=== PATIENT | female | born 1985 | race Caucasian/White ===

== ENCOUNTER → 2018-03-01 14:16 | Outpatient (CLI) | payer OTHER, SELFPAY ==
[2018-03-01 17:23] LABS: Chlamydia Trachomatis by PCR Negative (Negative); Neisserai gonorrhoeae by PCR Negative (Negative); Probe Check PASS; Sample Adequacy Control PASS; Specimen Processing Control PASS
== END ==
PROVIDERS: Visit Provider Obstetrics & Gynecology
DX: Z34.81 Encounter for supervision of other normal pregnancy, first trimester (principal)
CPT/HCPCS: 87086; 87088; 87491; 87591

== ENCOUNTER → 2018-04-01 11:46 | Outpatient (CLI) | payer OTHER, SELFPAY ==
[2018-04-01 12:54] LABS: Absolute Lymphocyte Count 2.01 X10^3/ul (0.83-4.51); Absolute Neutrophil Count 5.3 X10^3/uL (2.0-7.7); Basophil# 0.02 X10^3/uL; Basophil% 0.3 % (0-1); Eosinophil# 0.09 X10^3/uL; Eosinophils% 1.1 % (0-5); Hematocrit 37.1 % (37-47); Hemoglobin 13.2 g/dl (12.0-15.0); Lymphocyte # 2.01 X10^3/ul (4.0); Lymphocyte % 25.7 % (19-41); Mean Corp Hgb Conc 35.6 g/gl (32-36); Mean Corpuscular Hgb 29.3 pg (27.0-32.0); Mean Corpuscular Volume 82.4 fL (81-99); Monocyte# 0.44 X10^3/uL; Monocyte% 5.6 % (0-10); Neutrophil # 5.25 X10^3/uL (2.7-7.7); Platelet Count 240 K/mm3 (150-450); RBC Distribution Width CV 13.3 % (11.6-14.6); RBC Distribution Width SD 39.7 fl (35.1-43.9); White Blood Count 7.8 K/mm3 (4.4-11.0)
[2018-04-01 12:57] LABS: POSITIVE COUNT NO; POSITIVE DIFFERENTIAL NO; POSITIVE MORPHOLOGY NO
[2018-04-01 14:06] LABS: HIV - WCH Non-Reactive (Nonreactive); Rubella IgG 45.9 IU/mL
[2018-04-02 09:23] LABS: HEPATITIS B SURFACE AG Negative (Negative)
[2018-04-05 03:11] LABS: Rapid Plasmin Reagin (RPR) NONREACTIVE (NONREACTIVE)
== END ==
PROVIDERS: Obstetrics & Gynecology; Visit Provider Obstetrics & Gynecology Maternal & Fetal Medicine
DX: O09.521 Supervision of elderly multigravida, first trimester (principal)
CPT/HCPCS: 36415; 85025; 86592; 86703; 86762; 86850; 86900; 87340

== ENCOUNTER → 2018-05-16 12:07 | Outpatient (CLI) | payer OTHER, SELFPAY ==
--- NOTE | 2018-05-16 12:11 | US_ITS ---
STUDY: SECOND AND THIRD TRIMESTER OBSTETRICAL ULTRASOUND REASON FOR EXAM: Female, 32 years old. Evaluation of anatomy. LMP: 01/13/2018 TECHNIQUE: Transabdominal real time examined with grayscale image documentation. PRIOR ULTRASOUND: None. FINDINGS: There is a single intrauterine fetus. The fetus is in a cephalic presentation. There is demonstrated cardiac activity with a heart rate of 153 bpm. There is a normal amniotic fluid volume. The largest amniotic fluid pocket measures 6.6 x 4.9 cm. The placenta is anterior and low lying. The distal edge of the placenta is 2.1 cm from the cervical os. There are Grade 0 placental changes. The cervix measures 3.8 cm in length. The adnexal regions are not visualized. BIOMETRY: BPD: 4.3 cm: 19 weeks, 1 days HC: 16.5 cm: 19 weeks, 2 days AC: 13.4 cm: 19 weeks, 0 days FL: 2.6 cm: 18 weeks, 0 days CI: 73 FL/AC: 20 HC/AC: 1.23 age by current US: 18 weeks, 6 days. JUNIOR by current US: 10/11/2018. Estimated weight: 245 grams, +/- 36 grams, 21 %. Age by LMP: 19 weeks, 0 days. JUNIOR by LMP: 10/10/2018. ANATOMY: Gender: Male Cranium: Normal lateral ventricles. Normal choroid plexus. Normal cerebellum. Normal cisterna magna. Normal face, nose and lips. Chest: Normal 4-chamber heart. Abdomen/Pelvis: Normal diaphragm. Normal stomach. Normal abdominal wall. Normal cord insertion. Normal 3 vessel cord. Normal kidneys. Normal bladder. Spine: Limited spine imaging secondary to position. Grossly normal. Extremities: Normal bilateral upper extremities. Normal bilateral lower extremities. US/OB Anatomy Scan IMPRESSION: Single living intrauterine fetus of 18 weeks and 6 days with an JUNIOR of 10/11/2018. Grade 0, anterior and low lying placenta. The lowest edge of the placenta is 2.1 cm from the cervical os. Cervical length 3.8 cm. Normal quantity of amniotic fluid. Estimated weight 245 g +/- 26 g, 21 percentile. Male infant with normal anatomy; however, there was limited imaging of the spine secondary to position. Electronically Signed: Kayla Dang MD at 19:55 EDT , Service support ,
== END ==
PROVIDERS: Visit Provider Obstetrics & Gynecology
DX: O09.90 Supervision of high risk pregnancy, unspecified, unspecified trimester (principal); Z3A.00 Weeks of gestation of pregnancy not specified
CPT/HCPCS: 76805

== ENCOUNTER → 2018-07-15 16:56 | Outpatient (CLI) | payer OTHER, SELFPAY ==
[2018-07-15 17:47] LABS: Absolute Lymphocyte Count 1.91 X10^3/ul (0.83-4.51); Basophil# 0.02 X10^3/uL; Basophil% 0.2 % (0-1); Eosinophil# 0.15 X10^3/uL; Eosinophils% 1.4 % (0-5); Hematocrit 34.8 % (37-47); Hemoglobin 12.1 g/dl (12.0-15.0); Lymphocyte # 1.91 X10^3/ul (4.0); Lymphocyte % 17.9 % (19-41); Mean Corp Hgb Conc 34.8 g/gl (32-36); Mean Corpuscular Volume 86.1 fL (81-99); Mean Platelet Vol. 9.7 fl (6.2-12.0); Monocyte# 0.58 X10^3/uL; Monocyte% 5.4 % (0-10); Neutrophil # 7.97 X10^3/uL (2.7-7.7); Neutrophil % 74.9 % (47-70); Platelet Count 173 K/mm3 (150-450); RBC Distribution Width CV 13.8 % (11.6-14.6); RBC Distribution Width SD 43.4 fl (35.1-43.9); Red Blood Count 4.04 M/mm3 (4.2-5.4); White Blood Count 10.7 K/mm3 (4.4-11.0)
[2018-07-15 17:48] LABS: POSITIVE COUNT NO; POSITIVE DIFFERENTIAL NO; POSITIVE MORPHOLOGY NO
[2018-07-15 18:14] LABS: Glucose Challenge Gest 1H 50g 191 mg/dL (70-140)
== END ==
PROVIDERS: Family Provider Family Medicine; PCP Family Medicine; Visit Provider Obstetrics & Gynecology
DX: O09.90 Supervision of high risk pregnancy, unspecified, unspecified trimester (principal); Z3A.00 Weeks of gestation of pregnancy not specified
CPT/HCPCS: 82950; 85025

== ENCOUNTER 2018-08-14 16:00 | Outpatient (RCR) | payer OTHER, SELFPAY | END 2018-08-18 23:59 | LOC: NS 16:00 | PROVIDERS: Family Provider Family Medicine; PCP Family Medicine; Visit Provider Nurse Practitioner Women's Health | DX: O24.419 Gestational diabetes mellitus in pregnancy, unspecified control (principal); Z71.3 Dietary counseling and surveillance | CPT/HCPCS: 97802; G0108 ==

== ENCOUNTER 2018-09-05 16:45 | Outpatient (RCR) | payer OTHER, SELFPAY | END 2018-09-05 23:59 | LOC: DC 16:45 | PROVIDERS: Family Provider Family Medicine; PCP Family Medicine; Visit Provider Nurse Practitioner Women's Health | DX: O24.419 Gestational diabetes mellitus in pregnancy, unspecified control (principal); Z71.3 Dietary counseling and surveillance ==

== ENCOUNTER → 2018-09-13 08:54 | Outpatient (CLI) | payer OTHER, SELFPAY ==
--- NOTE | 2018-09-13 08:55 | US_ITS ---
STUDY: SECOND AND THIRD TRIMESTER OBSTETRICAL ULTRASOUND - LIMITED REASON FOR EXAM: Female, 33 years old. Routine survey. History of gestational diabetes. LMP: January 03, 2018. PRIOR ULTRASOUND: Comparison is made with prior examination dated May 08, 2018. TECHNIQUE: Transabdominal TECHNICAL QUALITY: Adequate. FINDINGS: There is a single intrauterine fetus. The fetus is in a cephalic presentation. There is demonstrated cardiac activity with a heart rate of 158 bpm. There is a normal amniotic fluid volume. The largest amniotic fluid pocket measures 3.6 cm x 2.2 cm. The amniotic fluid index (SPENCER) is 13.0 cm. The placenta is anterior in location and is not low lying. There are Grade 1 placental changes. The cervix measures 4.4 cm in length. BIOMETRY: BPD: 9.15 cm: 37 weeks, 1 days HC: 33.52 cm: 38 weeks, 3 days AC: 33.76 cm: 37 weeks, 5 days FL: 6.87 cm: 30 weeks, 2 days Age by LMP: 36 weeks, 1 days. JUNIOR by LMP: October 10, 2018. age by prior US: 36 weeks, 0 days. JUNIOR by prior US: October 11, 2018. age by current US: 37 weeks, 1 days. JUNIOR by current US: October 03, 2018. Estimated weight: 3120 grams, +/- 456 grams, 78 percentile. Gender: Male The low lying placenta as resolved. The spine was visualized and is unremarkable. US/OB Limited With Biometrics IMPRESSION: Single live uterine gestation with mean gestational age of 36 weeks. Measurements obtained today following the normal expected range. The previously seen low lying placenta has resolved. Electronically Signed: Kolby Kim MD at 13:15 EDT Tel [phone], Service support ,
== END ==
PROVIDERS: Family Provider Family Medicine; Referring Provider Obstetrics & Gynecology; Visit Provider Obstetrics & Gynecology
DX: O24.419 Gestational diabetes mellitus in pregnancy, unspecified control (principal); Z3A.00 Weeks of gestation of pregnancy not specified
CPT/HCPCS: 76816

== ENCOUNTER → 2018-09-17 18:48 | Outpatient (CLI) | payer OTHER, SELFPAY ==
[2018-09-17 20:41] LABS: Group B Strep DNA By PCR Negative (Negative); Internal Control PASS; Probe Check PASS; Specimen Processing Control PASS
== END ==
PROVIDERS: Referring Provider Nurse Practitioner Women's Health; Visit Provider Nurse Practitioner Women's Health
DX: O09.92 Supervision of high risk pregnancy, unspecified, second trimester (principal); Z3A.00 Weeks of gestation of pregnancy not specified
CPT/HCPCS: 87081; 87653

== ENCOUNTER 2018-10-07 07:00 | Inpatient (IN) | payer OTHER, SELFPAY ==
[2018-10-07] MEDS: Lactated Ringers 1,000 ML 50 ML IV ×3 (07:25→15:43)
[2018-10-07 07:31] VITALS: BMI 29.7
[2018-10-07] MEDS: Oxytocin 30 units/NS 500 ml 30 UNITS/500 ML IV.SOLN IV (07:55)
[2018-10-07 08:00] LABS: Hematocrit 35.7 % (37-47); Hemoglobin 12.7 g/dl (12.0-15.0); Mean Corp Hgb Conc 35.6 g/gl (32-36); Mean Corpuscular Hgb 29.9 pg (27.0-32.0); Mean Platelet Vol. 11.1 fl (6.2-12.0); Platelet Count 201 K/mm3 (150-450); RBC Distribution Width CV 13.9 % (11.6-14.6); RBC Distribution Width SD 41.9 fl (35.1-43.9); Red Blood Count 4.25 M/mm3 (4.2-5.4); White Blood Count 9.1 K/mm3 (4.4-11.0)
[2018-10-07 08:06] LABS: Scan Indicated on CBC? Y/N NO
[2018-10-07 09:30] LABS: Bedside Glucose 99 mg/dL (70-110)
[2018-10-07 09:30] LABS: Bedside Glucose 85 mg/dL (70-110)
--- NOTE | 2018-10-07 09:47 | PCM.HP.OB ---
- Problem List (1) Gestational diabetes mellitus (GDM) affecting Status: Acute Comment: diabetic diet. plan growth scan at 36 weeks and weekly nsts from 36 weeks on (2) Status: Acute Qualifiers: Comment: NIPT WNL. normal anatomy scan. (3) Supervision of high-risk Status: Acute Qualifiers: Comment: PRR JUNIOR 10/10/18 boy Reza Doe Waldemar (4) AMA (advanced maternal age) multigravida 35+ Status: Acute Comment: normal NIPT screening growth us at 36 weeks, genetic counseling offered and had MFM visit (5) Depression affecting Status: Chronic Comment: zoloft, counseling (6) H/O LEEP Status: Acute Comment: cervical length exam at 18 weeks History Date of Admission: 10/07/18 Final JUNIOR: 10/10/18 Final JUNIOR Source: US <20 weeks Gestational age: 39 Weeks and 4 Days History of this : This is a 33 year-old, , at 39 weeks gestational age presents IOL GDMA1 Medical History: Medical History (Last Reviewed 10/02/18 @ 08:03 by Shavonne Nayak) Abnormal Pap smear of cervix R87.619 Depression F32.9 Surgical History: Surgical History (Last Reviewed 10/02/18 @ 08:03 by Shavonne Nayak) H/O LEEP Z98.890 Allergies amoxicillin [Amoxicillin] Allergy (Verified 10/07/18 08:00) Rash Penicillins Allergy (Verified 10/07/18 08:00) Rash Home Medications: Home Medications Vits [Prenatabs FA ] 1 tab PO DAILY 06/03/14 blood sugar diagnostic strips See Dose Instructions .ROUTE .MEDSUPPLY #100 ea 07/16/18 blood-glucose meter kit See Dose Instructions .ROUTE .MEDSUPPLY #1 ea 07/16/18 Famotidine [Pepcid AC] 10 mg PO 10/07/18 Sertraline HCl [Zoloft] 50 mg PO QDAY 10/07/18 Smoking Status: Former smoker Alcohol: None Number of Fetus(es): 1 Heart Tracins moderate variability reactive n odecels cat I racing TOCO Analysis: irregular History Past Pregnancies: Pregancy History 3 Elective abortions Hx Para 2 Spontaneous abortions Hx # Term Pregnancies Ectopic pregnancies Hx # Pregnancies Multiple births # of living children Past Pregnancies Del. Date Name GA/Weeks Outcome Route Bth Weight [facility] 2009 Lyn[facility] live - full term Unknown 2013 Reza live - full term Labs: Mom's Labs & Results 10/07/18 10/07/18 10/07/18 07:25 07:25 08:24 WBC 9.1 RBC 4.25 Hgb 12.7 Hct 35.7 L MCV 84.0 MCH 29.9 MCHC 35.6 RDW 13.9 RDW Differential 41.9 Plt Count 201 MPV 11.1 POC Glucose 99 Blood Type Pending Antibody Screen Pending 10/07/18 09:21 WBC RBC Hgb Hct MCV MCH MCHC RDW RDW Differential Plt Count MPV POC Glucose 85 Blood Type Antibody Screen Course Did the patient receive Yes care? Labs RPR/VDRL/Syphilis Nonreactive Rubella status Immune HbSAg Negative Date Done: 04/01/18 Chlamydia Negative Gonorrhea Negative HIV/AIDS Non-Reactive Group B Strep: Negative Current Obstetrical History Gestational Diabetes Yes Incompetent Cervix No Infertility No IUGR No Macrosomia No Hypertension/Pre-eclampsia No Placenta Previa/Abruption No PTL/PROM No Uterine anomaly No Oligohydramnios No Polyhydramnios No Multiple gestation No Past Medical History Asthma No Diabetes No Hypertension No Heart disease No Mitral valve prolapse No Neurologic/Seizure disorder/ No Migraines Kidney disease No Liver disease No Varicosities No Clotting disorders/Hx of DVT No Thyroid Dysfunction No Other medical diseases No Psychiatric disorders Yes: anxiety/depression Major trauma No Abnormal PAP smear Yes: LEEP 2011 Sleep apnea No Mammogram in the last 2 years No Social History Marital Status: Alleged father Waldemar Haddad Hx Smoking No Smoking Status Former smoker Expected Delivery Method: Spontaneous Vaginal Describe any other labor & delivery plans:: OB Visit. JUNIOR Calculator. Estimated Delivery Date 10/10/18. Based on Ultrasound Date 04/01/18. Current WG 37w 6d. Number 1. Expected Delivery Route/Plan. . Specific Issue/Plans. flu vaccine: given. minichart given: tdap vaccine: given. rhogam: na. LARC form signed: declined. labor support person: Waldemar. pain management: epidural. cut cord/dad catch: cord. : yes. PP control planned: vasectomy. special requests: [] Review of Systems Constitutional: Denies: Fever, Malaise Eyes: Denies: Blurred vision, Vision Change HEENT: Denies: Head Aches, Visual Changes Cardiovascular: Denies: Chest Pain, Palpitations Respiratory: Denies: Cough, Shortness of Breath, Wheezing Gastrointestinal: Denies: Abdominal Pain, Diarrhea, Nausea, Vomiting Genitourinary: Denies: Dysuria, Hematuria Musculoskeletal: Denies: Joint Pain, Muscle pain Skin: Denies: Lesions, Rash Neurological: Denies: Blurred vision, Focal weakness, Headaches Psychiatric: Denies: Anxiety, Depression Endocrine: Denies: Heat/ Cold Intolerance Hematologic/ Lymphatic: Denies: Easy Bruising, Easy Bleeding Physical Exam General: Alert, Cooperative, No apparent distress HEENT: Atraumatic, Normocephalic. Negative for: Thyromegaly, Lymphadenopathy Cardiovascular: Regular rate Lungs: Normal air movement Abdomen: Soft, Non Tender, Gravid Neurological: Deep Tendon Reflexes 2+/4 and Symmetrical, Neuro grossly intact. 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 Negative for: Vulvar lesions Estimated gestational size: Appropriate for gestational size Presentation: Cephalic Assessment/Plan All Active Problems (Last Reviewed 10/02/18 @ 08:03 by Shavonne Nayak) Gestational diabetes mellitus (GDM) affecting (Acute) (Acute) Supervision of high-risk (Acute) AMA (advanced maternal age) multigravida 35+ (Acute) H/O LEEP (Acute) Encounter for screening (Resolved) This is a 33 year-old, , at 39 weeks gestational age presents Iol GDMA1 Patient presents IOL, plan expectant management for , pitocin now and AROM PRN . Pain management: plans epidural. GBS negative. Management of any complications: diabetes- check BS per protocol I have reviewed the [facility] and made any clinically relevant updates.
[2018-10-07] MEDS: fentaNYL-bupivacaine (epidural) 100 ML BAG EPIDURAL ×2 (12:43→17:12)
[2018-10-07 13:06] LABS: Bedside Glucose 100 mg/dL (70-110)
[2018-10-07 16:05] LABS: Bedside Glucose 87 mg/dL (70-110)
[2018-10-07 16:56] LABS: Bedside Glucose 116 mg/dL (70-110)
[2018-10-07] MEDS: Oxytocin 30 units/NS 500 ml 30 UNITS/500 ML IV.SOLN 334 UNITS IV (17:26)
[2018-10-07] MEDS: Oxytocin 30 units/NS 500 ml 30 UNITS/500 ML IV.SOLN 167 UNITS IV (17:55)
[2018-10-07 18:16] LABS: Bedside Glucose 82 mg/dL (70-110)
[2018-10-07] MEDS: 0.9% Saline Lock 10 ML Syringe IV (19:42)
[2018-10-07 19:50] VITALS: BP 105/65; PULSE 88; RESP 18; TEMP 37; O2SAT 98
[2018-10-07] MEDS: Naproxen 250 MG Tablet PO (20:08)
--- NOTE | 2018-10-07 20:54 | PCM.OB.VAG ---
- Problem List (1) Gestational diabetes mellitus (GDM) affecting Status: Acute Comment: diabetic diet. plan growth scan at 36 weeks and weekly nsts from 36 weeks on (2) Status: Acute Qualifiers: Comment: NIPT WNL. normal anatomy scan. (3) Supervision of high-risk Status: Acute Qualifiers: Comment: PRR JUNIOR 10/10/18 boy Reza Doe Waldemar (4) AMA (advanced maternal age) multigravida 35+ Status: Acute Comment: normal NIPT screening growth us at 36 weeks, genetic counseling offered and had MFM visit (5) Depression affecting Status: Chronic Comment: zoloft, counseling (6) H/O LEEP Status: Acute Comment: cervical length exam at 18 weeks Vaginal Delivery Maternal Presentation: Medically Indicated Induction iol gdma1 Medical Reason for Induction: Maternal Medical Condition: list: - diabetes Amniotic Membrane Rupture Type: Artificial Amniotic Fluid Description: Clear Final JUNIOR: 10/10/18 Gestational age: 39 Weeks and 4 Days Date of Procedure: 10/07/18 Pre-Operative Diagnosis: iol gdma Post-Operative Diagnosis: same Surgery/ Procedure Performed: Spontaneous Vaginal Delivery Type of Anesthesia: Epidural Description of Procedure: Patient began pushing and delivered the head in the ANA presentation. The head was delivered atraumatically . The anterior and posterior shoulders delivered without complication followed by the rest of the infant and the was placed on the maternal abdomen. Delayed cord clamping was employed for approximately 60 seconds. Cord was clamped and cut and gentle traction was applied to the cord and the placenta delivered spontaneously immediately following it was noted to be intact with three-vessel cord. The perineum and vagina were inspected and noted to have a small second-degree perineal laceration that was repaired in the usual fashion with 3-0 Vicryl repeat. EBL was 200 cc. Patient and infant tolerated delivery well. Presentation: ANA Placental Delivery Description: Spontaneous Placenta Disposition: [facility] Cord Vessel Description: 3 Vessels Estimated Blood Loss: 200 Infant A gender: Male Episiotomy Description: None Laceration: Perineal Extension/lac, 2nd degree Medications given after delivery: IV Pitocin Complications: None
[2018-10-07] MEDS: Acetaminophen 500 MG Tablet 1000 MG PO (22:50)
[2018-10-08 00:45] VITALS: BP 109/60; PULSE 63; RESP 16; TEMP 36.4; O2SAT 97
[2018-10-08 05:00] VITALS: BP 97/48; PULSE 68; RESP 16; TEMP 36.6; O2SAT 97
[2018-10-08] MEDS: Naproxen 250 MG Tablet PO ×3 (05:23→20:42)
[2018-10-08 05:46] LABS: Bedside Glucose 62 mg/dL (70-110)
[2018-10-08] MEDS: Acetaminophen 500 MG Tablet 1000 MG PO (08:18)
[2018-10-08 08:31] VITALS: BP 102/64; PULSE 71; RESP 16; TEMP 36.6
[2018-10-08] MEDS: Prenatal Vits Tablet 1 TABLET PO (08:40)
[2018-10-08] MEDS: Sertraline 50 MG Tablet PO (08:40)
--- NOTE | 2018-10-08 09:04 | PCM.PN.OB ---
Subjective: No CP, SOB. Doing well - Physical Exam General: Alert, Oriented x3 Abdomen: Soft, Non Tender, - - FF below U Vital Signs Temp Pulse Resp BP Pulse Ox 97.8 F 71 16 102/64 97 10/08/18 08:31 10/08/18 08:31 10/08/18 08:31 10/08/18 08:31 10/08/18 05:00 Oxygen Delivery Method Room Air Weight: 173 lb 1.006 oz Body Mass Index (BMI) 29.7 Intake and Output for Last 24 Hours 10/06/18 10/07/18 10/08/18 23:59 23:59 23:59 Intake Total 4220 / 4220 Output Total 1500 / 1500 500 / 500 Balance 2720 / 2720 -500 / -500 Laboratory Tests Past 24 Hrs 10/07/18 07:25 Blood Type B POSITIVE Antibody Screen NEGATIVE POC Glucose 10/08/18 10/07/18 10/07/18 05:41 17:46 16:47 POC Glucose 62 L 82 116 H 10/07/18 10/07/18 10/07/18 16:00 12:43 09:21 POC Glucose 87 100 85 10/07/18 08:24 POC Glucose 99 Medical Necessity - Tobacco Use Smoking Status: Former smoker Assessment/Plan All Active Problems (Last Reviewed 10/02/18 @ 08:03 by Shavonne Nayak) Gestational diabetes mellitus (GDM) affecting (Acute) (Acute) Supervision of high-risk (Acute) AMA (advanced maternal age) multigravida 35+ (Acute) H/O LEEP (Acute) Encounter for screening (Resolved) PPD#1: Routine care. GDM-POC glucose normal. Pain controlled
[2018-10-08 11:28] VITALS: BP 102/69; PULSE 91; RESP 16; TEMP 36.8
[2018-10-08 16:03] VITALS: BP 110/64; PULSE 69; RESP 16; TEMP 36.7
--- NOTE | 2018-10-08 17:31 | NURSING ---
Mom qualified for an electric home breast pump. Medela pump given to Mom per her request and instructions given for pump. Gurpreet COWART
[2018-10-08] MEDS: Senna/Docusate Sodium 1 Tablet PO (20:47)
[2018-10-08 21:58] VITALS: BP 118/69; PULSE 65; RESP 14; TEMP 36.8; O2SAT 98
[2018-10-09 01:50] VITALS: BP 115/70; PULSE 71; RESP 18; TEMP 36.2; O2SAT 96
--- NOTE | 2018-10-09 08:11 | PCM.PN.OB ---
Subjective: NO CP, SOB. Doing well. Plans home today. - Physical Exam General: Alert, Oriented x3 Abdomen: Soft, Non Tender, - - FF below U Vital Signs Temp Pulse Resp BP Pulse Ox 97.1 F L 71 18 115/70 96 10/09/18 01:50 10/09/18 01:50 10/09/18 01:50 10/09/18 01:50 10/09/18 01:50 Oxygen Delivery Method Room Air Weight: 173 lb 1.006 oz Body Mass Index (BMI) 29.7 Intake and Output for Last 24 Hours 10/07/18 10/08/18 10/09/18 23:59 23:59 23:59 Intake Total 4220 / 4220 Output Total 1500 / 1500 500 / 500 Balance 2720 / 2720 -500 / -500 Medical Necessity - Tobacco Use Smoking Status: Former smoker Assessment/Plan All Active Problems (Last Reviewed 10/02/18 @ 08:03 by Shavonne Nayak) Gestational diabetes mellitus (GDM) affecting (Acute) (Acute) Supervision of high-risk (Acute) AMA (advanced maternal age) multigravida 35+ (Acute) H/O LEEP (Acute) Encounter for screening (Resolved) PPD #2: Routine care. . Pain controlled. had vasectomy. Home today.
--- NOTE | 2018-10-09 08:13 | DCINST_ITS ---
Additional Instructions: If you experience any of the following, contact your healthcare provider. * Bleeding that soaks a pad every hour for 2 hours * Fever 100.4 or higher * Unrelieved incision or abdominal pain * Swelling, redness, discharge or bleeding from your incision or episiotomy site * Your incision begins to separate * Problems urinating (including inability to urinate or burning while urinating). * Visual changes * Severe headache * Flu-like symptoms * Pain or redness in one of both of your breasts * Pain, warmth, tenderness or swelling in your legs, especially the calf area * Frequent nausea and vomiting * Symptoms of depression or anxiety If you experience any of the following, call 911 or go to the nearest Emergency Room. * Chest pain * Problems breathing * Seizure activity * Partial or complete paralysis of a body part, slurred speech, weakness or drooping of the face, or a sudden inability to walk or hold your balance Allergies/Adverse Reactions: Allergies amoxicillin [Amoxicillin] Allergy (Verified 10/07/18 08:00) Rash Penicillins Allergy (Verified 10/07/18 08:00) Rash Medications to take at Discharge Vits [Prenatabs FA ] 1 tab PO DAILY 06/03/14 blood sugar diagnostic strips See Dose Instructions .ROUTE .MEDSUPPLY #100 ea 07/16/18 blood-glucose meter kit See Dose Instructions .ROUTE .MEDSUPPLY #1 ea 07/16/18 Famotidine [Pepcid AC] 10 mg PO 10/07/18 Sertraline HCl [Zoloft] 50 mg PO QDAY 10/07/18 Primary Care Physician: John Lopez MD [Primary Care Provider] - Test Results: Test results from this visit will be discussed in further detail at your follow- up appointment, if applicable.
--- NOTE | 2018-10-09 08:13 | PCM.DCVAG ---
Additional Instructions: If you experience any of the following, contact your healthcare provider. Bleeding that soaks a pad every hour for 2 hours Fever 100.4 or higher Unrelieved incision or abdominal pain Swelling, redness, discharge or bleeding from your incision or episiotomy site Your incision begins to separate Problems urinating (including inability to urinate or burning while urinating). Visual changes Severe headache Flu-like symptoms Pain or redness in one of both of your breasts Pain, warmth, tenderness or swelling in your legs, especially the calf area Frequent nausea and vomiting Symptoms of depression or anxiety If you experience any of the following, call 911 or go to the nearest Emergency Room. Chest pain Problems breathing Seizure activity Partial or complete paralysis of a body part, slurred speech, weakness or drooping of the face, or a sudden inability to walk or hold your balance Allergies/Adverse Reactions: Allergies amoxicillin [Amoxicillin] Allergy (Verified 10/07/18 08:00) Rash Penicillins Allergy (Verified 10/07/18 08:00) Rash Medications to take at Discharge Vits [Prenatabs FA ] 1 tab PO DAILY 06/03/14 blood sugar diagnostic strips See Dose Instructions .ROUTE .MEDSUPPLY #100 ea 07/16/18 blood-glucose meter kit See Dose Instructions .ROUTE .MEDSUPPLY #1 ea 07/16/18 Famotidine [Pepcid AC] 10 mg PO 10/07/18 Sertraline HCl [Zoloft] 50 mg PO QDAY 10/07/18 Primary Care Physician: John Lopez MD [Primary Care Provider] - Test Results: Test results from this visit will be discussed in further detail at your follow-up appointment, if applicable.
[2018-10-09] MEDS: Senna/Docusate Sodium 1 Tablet PO (09:57)
[2018-10-09] MEDS: Sertraline 50 MG Tablet PO (09:57)
[2018-10-09] MEDS: Naproxen 250 MG Tablet PO (09:58)
[2018-10-09 10:00] VITALS: BP 103/58; PULSE 88; RESP 16; TEMP 36.7; O2SAT 97
== END 2018-10-09 11:05 | disposition home or self-care (01) | DRG 806 ==
PROVIDERS: Admitting Provider Obstetrics & Gynecology; Family Provider Family Medicine; PCP Family Medicine; Referring Provider Obstetrics & Gynecology; Visit Provider Obstetrics & Gynecology
DX: O24.420 Gestational diabetes mellitus in childbirth, diet controlled (principal); O71.5 Other obstetric injury to pelvic organs; Z37.0 Single live birth; Z87.891 Personal history of nicotine dependence; Z79.899 Other long term (current) drug therapy; Z3A.39 39 weeks gestation of pregnancy
CPT/HCPCS: 59050; 82962; 85027; 86850; 86900; 99218; J7120; 90686; A4216; G0378

== ENCOUNTER → 2020-04-16 | Outpatient (CLI) | payer OTHER, SELFPAY ==
[2020-04-16 14:54] VITALS: BMI 29.7
[2020-04-20 20:07] LABS: HPV Genotype 16, Aptima Negative (Negative)
[2020-04-21 02:33] LABS: HPV APTIMA, High Risk Positive (Negative); HPV Genotype 18,45 Aptima Negative (Negative)
== END | disposition home or self-care (01) ==
LOC: LABSPEC 16:57
PROVIDERS: PCP Family Medicine; Referring Provider Obstetrics & Gynecology; Visit Provider Obstetrics & Gynecology
DX: Z12.4 Encounter for screening for malignant neoplasm of cervix (principal)
CPT/HCPCS: 87624; 88175; G0145

== ENCOUNTER → 2021-08-23 17:51 | Outpatient (CLI) | payer OTHER, SELFPAY ==
[2021-08-26 21:12] LABS: HPV APTIMA, High Risk Negative (Negative)
== END ==
PROVIDERS: PCP Family Medicine; Referring Provider Nurse Practitioner Women's Health; Visit Provider Nurse Practitioner Women's Health
DX: Z12.4 Encounter for screening for malignant neoplasm of cervix (principal)
CPT/HCPCS: 87624; 88175; G0145

== ENCOUNTER → 2022-09-05 | Outpatient (CLI) | payer OTHER, SELFPAY ==
[2022-09-14 05:07] LABS: HPV Genotype 16, Aptima Negative (Negative)
[2022-09-14 17:11] LABS: HPV APTIMA, High Risk Positive (Negative); HPV Genotype 18,45 Aptima Negative (Negative)
== END | disposition home or self-care (01) ==
LOC: LABSPEC 15:14
PROVIDERS: PCP Family Medicine; Referring Provider Nurse Practitioner Women's Health; Visit Provider Nurse Practitioner Women's Health
DX: Z12.4 Encounter for screening for malignant neoplasm of cervix (principal)
CPT/HCPCS: 87624; 88175; G0145

== ENCOUNTER → 2022-09-15 | Outpatient (CLI) | payer OTHER, SELFPAY ==
--- NOTE | 2022-09-15 13:54 | BI_ITS ---
MAMMOGRAPHY - BILATERAL SCREENING REASON FOR EXAM: Female, 37 years old. Routine annual screening examination. PERTINENT HISTORY: Grandmother with breast cancer. Aunt with breast cancer. TECHNIQUE: Digital bilateral breast demetri (3D mammographic acquisition) in the CC and MLO projections. 2-D mediolateral oblique (MLO) and craniocaudad (CC) views of both breasts were obtained. CAD: Full Field Digital Mammography with Computer Added Detection was performed. COMPARISON: None. Baseline examination. FINDINGS: Breast Composition: The breasts are extremely dense, which lowers the sensitivity of mammography. There are no dominant masses or suspicious calcifications. No other significant abnormalities are identified. BI/SCRN MAMM (CAD)W/DEMETRI BILAT IMPRESSION: Negative screening mammogram. Yearly followup mammogram recommended. (A) ASSESSMENT CATEGORY: BIRADS Category 1: Negative. A letter regarding these results will be sent to the patient by the facility within 30 days. Approximately 10% of breast cancers are not detected by mammography. A normal mammogram should not delay biopsy of a clinically suspicious abnormality. [id number] Electronically Signed: Kolby Kim MD at 15:06 EDT ,
== END | disposition home or self-care (01) ==
LOC: OPBI 13:54
PROVIDERS: PCP Family Medicine; Referring Provider Nurse Practitioner Women's Health; Visit Provider Nurse Practitioner Women's Health
DX: Z12.31 Encounter for screening mammogram for malignant neoplasm of breast (principal)
CPT/HCPCS: 77063; 77067

== ENCOUNTER → 2025-04-30 | Outpatient (CLI) | payer OTHER, SELFPAY ==
[2025-05-02 15:08] LABS: HPV APTIMA, High Risk Negative (Negative)
== END | disposition home or self-care (01) ==
LOC: LABSPEC 12:00
PROVIDERS: PCP Family Medicine; Referring Provider Nurse Practitioner Family; Visit Provider Nurse Practitioner Family
DX: Z12.4 Encounter for screening for malignant neoplasm of cervix (principal)
CPT/HCPCS: 87624; 88175; G0145